=== PATIENT | male | born 1965 | race Two or more races ===

== ENCOUNTER → 2025-11-10 | Outpatient (CLI) | payer BC, SELFPAY ==
--- NOTE | 2025-11-10 07:15 | XR_ITS ---
Examination: Abdomen sonogram, complete Date and time of exam: November 10, 2025, 0732 hours INDICATIONS: Left abdomen swelling and pain intermittent beginning 1 year ago. Technique: Multiple real-time grayscale transabdominal sonographic images of the abdomen have been obtained. Findings: Normal gallbladder Normal common bile duct 0.2 cm Pancreatic head 2.8 cm Aorta not enlarged Liver 14.7 cm fatty infiltration Normal hepatopetal portal venous flow Patent IVC Right kidney 11.4 cm renal cortex 1.7 cm Left kidney 11.7 cm renal cortex 1.9 cm Moderate renal scar formation Spleen 10.0 cm IMPRESSION: Normal gallbladder Normal common bile duct Moderate bilateral renal parenchymal scar formation
== END | disposition home or self-care (01) ==
LOC: CDIM 06:55
PROVIDERS: PCP Nurse Practitioner Family; Referring Provider Nurse Practitioner Family; Visit Provider Nurse Practitioner Family
DX: N28.89 Other specified disorders of kidney and ureter (principal)
CPT/HCPCS: 76700